=== PATIENT | male | born 1995 | race Caucasian/White ===

== ENCOUNTER 2016-11-13 11:50 | Emergency (ER) | payer OTHER ==
[2016-11-13 11:58] VITALS: BP 149/78; PULSE 91; TEMP 98.2; BMI 26.3
--- NOTE | 2016-11-13 12:16 | PDOC ---
History of Present Illness - General Chief Complaint: Pain Stated Complaint: LT LEG/ RT CALF PAIN Time Seen by Provider: 11/13/16 12:14 History Source: Patient Exam Limitations: No Limitations - History of Present Illness Initial Comments: CHIEF COMPLAINT: 20 y/o afebrile male c/o right atraumatic knee pain starting this morning. HISTORY OF PRESENT ILLNESS: the patient states he was bending down to lift heavy boxes yesterday while moving and woke up this morning with right knee pain. He states the pain is intermittent. he did not take anything for the pain. he denies fall, trauma to knee, swelling, decreased ROM, numbness/ tingling in right LE. Vital signs on arrival are within normal limits. REVIEW OF SYSTEMS: GENERAL/CONSTITUTIONAL: No fever/chills. No weakness. No weight change. GENITOURINARY: No dysuria, frequency, or change in urination. MUSCULOSKELETAL: +right knee pain. No neck or back pain. SKIN: No rash or easy bruising. NEUROLOGIC: No headache, vertigo, loss of consciousness, or loss of sensation. PHYSICAL EXAM: VITAL_SIGNS: within normal limits GENERAL_APPEARANCE: alert, cooperative, no obvious discomfort. Pt is ambulatory with normal gait. MENTAL_STATUS: speech clear, oriented X 3, responds appropriately to questions. NEURO: motor intact and sensory intact in injured extremity. EXTREMITIES: No edema, erythema, warmth or breaks in skin to right knee and lower extremity. Full flexion and extension against resistance without pain of right knee. Minimal TTP of lateral joint space of right knee. SKIN: warm, dry, good color. Past History - Past Medical History Allergies/Adverse Reactions: Allergies Allergy/AdvReac Type Severity Reaction Status Date / Time peanut Allergy Swelling Verified 11/13/16 11:58 Home Medications: Ambulatory Orders Ibuprofen [Motrin -] 800 mg PO ONCE PRN 08/02/13 Naproxen [Naprosyn] 500 mg PO BID #20 tablet 08/02/13 Psychiatric Problems: Yes (BIPOLAR) - Immunization History Immunization Up to Date: Yes - Psycho/Social/Smoking Cessation Hx Suicidal Ideation: No Smoking History: Never smoked Hx Alcohol Use: Yes (SOCIAL) Drug/Substance Use Hx: No Substance Use Type: None *Physical Exam - Vital Signs Last Vital Signs Temp Pulse Resp BP Pulse Ox 98.2 F 91 H 20 149/78 98 11/13/16 11:56 11/13/16 11:56 11/13/16 11:56 11/13/16 11:56 11/13/16 11:56 Medical Decision Making - Medical Decision Making A/P: 20 y/o male with right knee pain from overuse yesterday. Will give PO motrin in the ER. Suggested he take OTC motrin every 6 hours with food for pain and follow RICE instructions. Suggested patient refrain from lifting anything today. Pt instructed to return to the ER with any worsening or concerning symptoms. The patient verbalizes understanding of all instructions, has no further questions and is awaiting discharge. *DC/Admit/Observation/Transfer Diagnosis at time of Disposition: Knee pain, right Qualifiers: Chronicity: acute Qualified Code(s): M25.561 - Pain in right knee - Discharge Dispostion Disposition: HOME Condition at time of disposition: Good - Referrals Referrals: José Miguel Barbosa MD [Primary Care Provider] - - Patient Instructions Printed Discharge Instructions: DI for Knee Pain, How To Perform RICE (Rest, Ice, Compress, Elevate) Additional Instructions: Discharge Instructions: -Follow RICE instructions -Take 600mg of Motrin every 6 hours if needed for pain -Return to the ER with any worsening or concerning symptoms
[2016-11-13] MEDS ORDERED: IBUPROFEN 600 MG TABLET (FP) PO ONE (12:28)
== END 2016-11-13 12:42 | disposition home or self-care (01) ==
LOC: JERFT 11:50
DX: M25.561 Pain in right knee (principal); M70.861 Other soft tissue disorders related to use, overuse and pressure, right lower leg; X50.0XXA Overexertion from strenuous movement or load, initial encounter; Y92.038 Other place in apartment as the place of occurrence of the external cause; Y93.E6 Activity, residential relocation
CPT/HCPCS: 99281-25

== ENCOUNTER 2022-04-14 17:19 | Emergency (ER) | payer OTHER ==
[2022-04-14 17:34] VITALS: BP 108/71; PULSE 102; RESP 20; TEMP 98.3; BMI 24.3
[2022-04-14] MEDS ORDERED: KETOROLAC TROMETHAMINE 30 MG/1 ML VIAL IM ONE (18:06)
[2022-04-14] MEDS ORDERED: KETOROLAC TROMETHAMINE 30 MG/1 ML VIAL ONE (18:10)
== END 2022-04-14 19:11 | disposition home or self-care (01) ==
LOC: JER 17:19 → JERFT 17:19
PROC: 3E0233Z Introduction of Anti-inflammatory into Muscle, Percutaneous Approach (ICD-10-PCS; principal; 2022-04-14)
DX: M25.571 Pain in right ankle and joints of right foot (principal)
CPT/HCPCS: 99284-25

== ENCOUNTER 2024-04-23 10:47 | Emergency (ER) | payer OTHER ==
[2024-04-23 11:26] VITALS: BP 128/78; PULSE 83; RESP 18; TEMP 98; BMI 25.1
[2024-04-23] MEDS ORDERED: METHOCARBAMOL 500 MG TABLET ONE (12:21)
[2024-04-23] MEDS ORDERED: IBUPROFEN 600 MG TABLET (FP) PO ONE (12:21)
[2024-04-23] MEDS: METHOCARBAMOL 500 MG TABLET PO ONE (12:23)
[2024-04-23] MEDS: IBUPROFEN 600 MG TABLET (FP) PO ONE (12:23)
[2024-04-23 16:45] LABS: HIV INTERPRETATION NEGATIVE (NEGATIVE)
== END 2024-04-23 12:56 | disposition home or self-care (01) ==
LOC: JERFT 10:47
DX: M25.511 Pain in right shoulder (principal); M25.512 Pain in left shoulder
CPT/HCPCS: 36415; 73030-TC-LT-FY; 73030-TC-RT-FY; 73590-TC-RT-FY; 73610-TC-LT-FY; 73610-TC-RT-FY; 73630-TC-LT; 73630-TC-RT-FY; 86803; 87389; 99284-25